=== PATIENT | male | born 1965 | race Caucasian/White ===

== ENCOUNTER → 2016-10-15 | Outpatient (CLI) | payer BC ==
[~2016-10-15] VITALS: Ht 182.9 cm; Wt 95.5 kg
[2016-10-15 14:04] VITALS: BP 129/76; PULSE 68
[2016-10-15 14:55] VITALS: BP 139/85; PULSE 66
== END ==
LOC: COL.RAD 13:07
DX: M47.22 Other spondylosis with radiculopathy, cervical region (principal); M48.02 Spinal stenosis, cervical region
CPT/HCPCS: J1100